=== PATIENT | male | born 1965 | race Caucasian/White ===

== ENCOUNTER 2019-10-05 11:40 | Emergency (ER) | payer OTHER ==
[2019-10-05] MEDS ORDERED: Sodium Chloride 0.9% 1000 ML 1,000 ML ONE (12:10)
[2019-10-05] MEDS: Sodium Chloride 0.9% 1000 ML 1,000 ML IV SCH (12:22)
--- NOTE | 2019-10-05 12:29 | XRAY ---
Indication: TIA symptoms and blurry vision. Hypertension. Multiple contiguous axial images obtained through the head without contrast. Comparison: None Normal appearing brain parenchyma, ventricles, and bony calvarium. Visualized paranasal sinuses and mastoid air cells are clear. Impression: Normal CT head without contrast exam.
--- NOTE | 2019-10-05 12:33 | ERPHSYRPT ---
- History of Present Illness Time Seen by Provider: 10/05/19 11:50 Source: patient Exam Limitations: no limitations Patient Subjective Stated Complaint: states bp was elevated at home this am. was 158/100. also had short episode of blurred vision this am while driving. states he feel ok now. denies any other symptoms. family member with patient states patient's father had a stroke at this age. Triage Nursing Assessment: ambulated to room per self. skin w/d, color flushed. resp nonlabored. denies any other symptoms at this time. gray without difficulty. a/o times four. speech clear. Physician History: Patient is a 54-year-old male presents to our ED with complaints of blurred vision hypertension. Patient was driving home and observed his vision to be blurred. Patient stated felt as though he had a rain drop on his glasses. Coincidentally it is raining today and patient wears glasses. However patient states that he was in his vehicle and his eyeglasses were dry at the time of the symptoms. Symptoms lasted for approximately 10 minutes. Symptoms then resolved. Symptoms are not associated with numbness tingling or weakness. No nausea vomiting or diaphoresis. No diarrhea. No rash. No headache. No neck pain. No trauma. Patient is 54 years old and states he has not seen a primary care doctor in many years. Patient does not know what his cholesterol is at this time. Patient voices no other complaints at this time. Patient currently asymptomatic. Timing/Duration: today Severity: mild Character of Deficits: none Baseline/Normal Cognition: alert oriented x 3 Current Cognition: alert oriented x 3 Baseline Gait: walks w/o assistance Associated Symptoms: vision changes, No fever, No chills, No loss of consciousness, No nausea, No vomiting, No weakness, No numbness/tingling in legs /feet, No paresthesia, No chest pain, No headache Allergies/Adverse Reactions: No Known Drug Allergies Allergy (Unverified 10/05/19 11:59) Home Medications: No Reportable Medications [No Reported Medications] 10/05/19 [History] Hx Tetanus, Diphtheria Vaccination/Date Given: No Hx Influenza Vaccination/Date Given: No Hx Pneumococcal Vaccination/Date Given: No - Review of Systems Constitutional: No Fever, No Chills Eyes: No Symptoms Ears, Nose, & Throat: No Symptoms Respiratory: No Symptoms, No Cough, No Dyspnea Cardiac: No Symptoms, No Chest Pain, No Edema, No Syncope Abdominal/Gastrointestinal: No Symptoms, No Abdominal Pain, No Nausea, No Vomiting, No Diarrhea Genitourinary Symptoms: No Symptoms, No Dysuria Musculoskeletal: No Symptoms, No Back Pain, No Neck Pain Skin: No Symptoms, No Rash Neurological: No Symptoms, No Dizziness, No Focal Weakness, No Sensory Changes Psychological: No Symptoms Endocrine: No Symptoms All Other Systems: Reviewed and Negative - Past Medical History Pertinent Past Medical History: No - Past Surgical History Past Surgical History: No - Social History Smoking Status: Never smoker Exposure to second hand smoke: No Drug Use: none Patient Lives Alone: No - Nursing Vital Signs Nursing Vital Signs: Initial Vital Signs Temperature 97.5 F 10/05/19 11:45 Pulse Rate 78 10/05/19 11:45 Respiratory Rate 16 10/05/19 11:45 Blood Pressure 144/91 10/05/19 11:45 O2 Sat by Pulse Oximetry 98 10/05/19 11:45 Pain Scale Pain Intensity 0 - Hillary Coma Scale Best Eye Response (Hillary): (4) open spontaneously Best Verbal Response (Kathleen): (5) oriented Best Motor Response (Hillary): (6) obeys commands Kathleen Total: 15 - Physical Exam General Appearance: no apparent distress, alert Eye Exam: bilateral eye: normal inspection, PERRL, EOMI Ears, Nose, Throat Exam: normal ENT inspection, moist mucous membranes Neck Exam: normal inspection, non-tender, supple Respiratory: normal breath sounds, lungs clear, airway intact, No respiratory distress Cardiovascular: regular rate/rhythm, No edema Gastrointestinal: soft, No tenderness, No distention Back Exam: normal inspection Extremity Exam: normal inspection, No pedal edema Mental Status: alert, 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: normal hearing, normal speech, PERRL, tongue midline, No abnormal eye position, No abnormal gag reflex, No abnormal pupil position, No abnormal speech , No facial asymmetry, No facial droop, No facial paresthesias, No facial weakness, No gaze palsy, No hearing deficit (R), No hearing deficit (L), No tongue deviation to R, No tongue deviation to L Coordination/Gait: normal finger to nose, normal gait Motor/Sensory: No no motor deficit, No no pronator drift, No negative Babinski' s sign, No positive Babinski's sign, No pronator drift (R), No pronator drift (L ), No sensory deficit, No weak motor strength LUE, No weak motor strength RLE, No weak motor strength LLE Skin Exam: normal color, warm, dry, No rash SpO2 Interpretation: normal SpO2: 96 O2 Delivery: Room Air - Course EKG Interpreted by Me: RATE, Sinus Rhythm, NORMAL AXIS, NORMAL INTERVALS - CT Exams Head CT Interpretation: Negative, Tele-radiologist Report (Normal CT head without contrast.) Ordered Tests: Active Orders 24 hr Category Date Time Status Spinner Cap Frame STAT Care 10/05/19 12:06 Active IV Insertion STAT Care 10/05/19 12:05 Active NPO (ED) STAT Care 10/05/19 12:06 Active Pulse Oximetry (ED) STAT Care 10/05/19 12:05 Active HEAD WITHOUT CONTRAST [CT] Stat Exams 10/05/19 12:06 Completed CBC W DIFF Stat Lab 10/05/19 12:20 Completed CMP Stat Lab 10/05/19 12:20 Completed TROPONIN Q3H Lab 10/05/19 13:00 Completed TROPONIN Q3H Lab 10/05/19 15:10 Completed TROPONIN Q3H Lab 10/05/19 19:00 Ordered TROPONIN Q3H Lab 10/05/19 22:00 Ordered TROPONIN Q3H Lab 10/06/19 01:00 Ordered UA W/RFX UR CULTURE Stat Lab 10/05/19 13:18 Completed Medication Summary Generic Name Dose Route Start Last Admin Trade Name Freq PRN Reason Stop Dose Admin Sodium Chloride 1,000 mls @ 100 mls/hr 10/05/19 12:15 10/05/19 12:22 Sodium Chloride 0.9% 1000 Ml IV 11/04/19 12:14 100 mls/hr .Q10H TL Administration Discontinued Medications Generic Name Dose Route Start Last Admin Trade Name Freq PRN Reason Stop Dose Admin Aspirin 324 mg 10/05/19 14:02 10/05/19 14:13 Baby Aspirin 81 Mg Chew PO 10/05/19 14:03 324 mg STAT ONE Administration Lab/Rad Data: Laboratory Result Diagrams 10/05/19 12:20 10/05/19 12:20 Laboratory Results 10/05/19 10/05/19 10/05/19 Range/Units 15:10 13:18 13:00 WBC (4.0-10.5) K/mm3 RBC (4.1-5.6) M/mm3 Hgb (12.5-18.0) gm/dl Hct (42-50) % MCV (78-100) fl MCH (26-32) pg MCHC (32-36) g/dl RDW (11.5-14.0) % Plt Count (150-450) K/mm3 MPV (7.5-11.0) fl Gran % (36.0-66.0) % Eos # (Auto) (0-0.5) Absolute Lymphs (auto) (1.0-4.6) Absolute Monos (auto) (0.0-1.3) Lymphocytes % (24.0-44.0) % Monocytes % (0.0-12.0) % Eosinophils % (0.00-5.0) % Basophils % (0.0-0.4) % Absolute Granulocytes (1.4-6.9) Basophils # (0-0.4) Sodium (137-145) mmol/L Potassium (3.5-5.1) mmol/L Chloride (98-107) mmol/L Carbon Dioxide (22-30) mmol/L Anion Gap (5-15) MEQ/L BUN (9-20) mg/dL Creatinine (0.66-1.25) mg/dL Estimated GFR ML/MIN Glucose (74-106) mg/dL Calcium (8.4-10.2) mg/dL Total Bilirubin (0.2-1.3) mg/dL AST (17-59) U/L ALT (0-50) U/L Alkaline Phosphatase (38-126) U/L Troponin I < 0.012 < 0.012 (0.000-0.034) ng/mL Serum Total Protein (6.3-8.2) g/dL Albumin (3.5-5.0) g/dL Urine Color YELLOW (YELLOW) Urine Appearance CLEAR (CLEAR) Urine pH 8.0 (5-6) Ur Specific Edgard 1.012 (1.005-1.025) Urine Protein NEGATIVE (Negative) Urine Ketones NEGATIVE (NEGATIVE) Urine Blood NEGATIVE (0-5) Murphy/ul Urine Nitrite NEGATIVE (NEGATIVE) Urine Bilirubin NEGATIVE (NEGATIVE) Urine Urobilinogen NEGATIVE (0-1) mg/dL Ur Leukocyte Esterase NEGATIVE (NEGATIVE) Urine WBC (Auto) NONE (0-5) /HPF Urine RBC (Auto) NONE (0-2) /HPF U Epithel Cells (Auto) NONE (FEW) /HPF Urine Bacteria (Auto) NONE (NEGATIVE) /HPF Urine Mucus (Auto) SLIGHT (NEGATIVE) /HPF Urine Culture Reflexed NO (NO) Urine Glucose NEGATIVE (NEGATIVE) mg/dL 10/05/19 10/05/19 Range/Units 12:20 12:20 WBC 6.6 (4.0-10.5) K/mm3 RBC 5.00 (4.1-5.6) M/mm3 Hgb 15.4 (12.5-18.0) gm/dl Hct 45.9 (42-50) % MCV 91.8 (78-100) fl MCH 30.8 (26-32) pg MCHC 33.6 (32-36) g/dl RDW 12.8 (11.5-14.0) % Plt Count 212 (150-450) K/mm3 MPV 10.4 (7.5-11.0) fl Gran % 62.2 (36.0-66.0) % Eos # (Auto) 0.08 (0-0.5) Absolute Lymphs (auto) 1.88 (1.0-4.6) Absolute Monos (auto) 0.53 (0.0-1.3) Lymphocytes % 28.3 (24.0-44.0) % Monocytes % 8.0 (0.0-12.0) % Eosinophils % 1.2 (0.00-5.0) % Basophils % 0.3 (0.0-0.4) % Absolute Granulocytes 4.13 (1.4-6.9) Basophils # 0.02 (0-0.4) Sodium 139 (137-145) mmol/L Potassium 4.3 (3.5-5.1) mmol/L Chloride 106 (98-107) mmol/L Carbon Dioxide 29 (22-30) mmol/L Anion Gap 8.8 (5-15) MEQ/L BUN 16 (9-20) mg/dL Creatinine 0.78 (0.66-1.25) mg/dL Estimated GFR > 60.0 ML/MIN Glucose 91 (74-106) mg/dL Calcium 9.1 (8.4-10.2) mg/dL Total Bilirubin 0.50 (0.2-1.3) mg/dL AST 33 (17-59) U/L ALT 33 (0-50) U/L Alkaline Phosphatase 50 (38-126) U/L Troponin I (0.000-0.034) ng/mL Serum Total Protein 6.8 (6.3-8.2) g/dL Albumin 4.1 (3.5-5.0) g/dL Urine Color (YELLOW) Urine Appearance (CLEAR) Urine pH (5-6) Ur Specific Edgard (1.005-1.025) Urine Protein (Negative) Urine Ketones (NEGATIVE) Urine Blood (0-5) Murphy/ul Urine Nitrite (NEGATIVE) Urine Bilirubin (NEGATIVE) Urine Urobilinogen (0-1) mg/dL Ur Leukocyte Esterase (NEGATIVE) Urine WBC (Auto) (0-5) /HPF Urine RBC (Auto) (0-2) /HPF U Epithel Cells (Auto) (FEW) /HPF Urine Bacteria (Auto) (NEGATIVE) /HPF Urine Mucus (Auto) (NEGATIVE) /HPF Urine Culture Reflexed (NO) Urine Glucose (NEGATIVE) mg/dL - Progress Progress Note: 10/05/19 15:[address] Hager who advised patient to come to our ED for an evaluation. After detailed discussion on patient's status and work-up Dr. Hager and I both felt that it was appropriate for discharge. In addition patient does not want to stay or be admitted in our hospital. A work-up for possible TIA will be conducted as an outpatient. Plan of care discussed with patient. Discussed with : Clara Will see patient in: office Counseled pt/family regarding: drug and/or alcohol abuse, lab results, diagnosis , need for follow-up, rad results, smoking cessation (Patient is a non-smoker.) - Departure Departure Disposition: Home Clinical Impression: Hypertension, Blurred vision, bilateral Condition: Good Critical Care Time: No Referrals: REAGAN HAGER MD [Primary Care Provider] - Additional Instructions: Discharge/Care Plan TAI WAITE was seen on 10/05/19 in the Emergency Room. The patient was counseled regarding Diagnosis,Lab results, Imaging studies, need for follow up and when to return to the Emergency Room. Prescriptions given: Discharge Note I have spoken with the patient and/or caregivers. I have explained the patient' s condition, diagnosis and treatment plan based on the information available to me at this time. I have answered the patient's and/or caregiver's questions and addressed any concerns. The patient and/or caregivers have as good understanding of the patient's diagnosis, condition and treatment plan as can be expected at this point. The vital signs have been stable. The patient's condition is stable and appropriate for discharge from the emergency department. The patient will pursue further outpatient evaluation with the primary care physician or other designated or consulting physician as outlined in the discharge instructions. The patient and/or caregivers are agreeable to this plan of care and follow-up instructions have been explained in detail. The patient and/or caregivers have received these instruction. The patient/and or caregivers are aware that any significant change in condition or worsening of symptoms should prompt an immediate return to this or the closest emergency department or call 911.
[2019-10-05 12:42] LABS: Absolute Neutrophil Ct (ANC) 4.13 (1.4-6.9); BASOPHIL % 0.3 % (0.0-0.4); Basophil (Absolute #) 0.02 (0-0.4); Eosinophil % 1.2 % (0.00-5.0); Eosinophil (Absolute #) 0.08 (0-0.5); Hematocrit 45.9 % (42-50); Hemoglobin 15.4 gm/dl (12.5-18.0); Lymphocyte (Absolute #) 1.88 (1.0-4.6); Lymphocytes % 28.3 % (24.0-44.0); Mean Cell Volume 91.8 fl (78-100); Mean Corpuscular Hemoglobin 30.8 pg (26-32); Mean Corpuscular Hgb Concent. 33.6 g/dl (32-36); Mean Platelet Volume 10.4 fl (7.5-11.0); Monocyte (Absolute #) 0.53 (0.0-1.3); Neutrophil % 62.2 % (36.0-66.0); Platelet Count 212 K/mm3 (150-450); Red Cell Distribution Width 12.8 % (11.5-14.0); White Blood Count 6.6 K/mm3 (4.0-10.5)
[2019-10-05 12:53] LABS: ALBUMIN 4.1 g/dL (3.5-5.0); ALKALINE PHOSPHATASE 50 U/L (38-126); ANION GAP 8.8 MEQ/L (5-15); BLOOD UREA NITROGEN 16 mg/dL (9-20); CHLORIDE 106 mmol/L (98-107); Calcium 9.1 mg/dL (8.4-10.2); Carbon Dioxide 29 mmol/L (22-30); Creatinine 1 0.78 mg/dL (0.66-1.25); Glucose 91 mg/dL (74-106); Potassium 4.3 mmol/L (3.5-5.1); SGOT/AST 33 U/L (17-59); SGPT/ALT 33 U/L (0-50); SODIUM 139 mmol/L (137-145); Total Protein 6.8 g/dL (6.3-8.2)
[2019-10-05 13:33] LABS: Appearance CLEAR (CLEAR); Bilirubin NEGATIVE (NEGATIVE); Blood NEGATIVE Ery/ul (0-5); Glucose NEGATIVE (NEGATIVE); Ketones NEGATIVE (NEGATIVE); Leukocyte Esterase NEGATIVE (NEGATIVE); Mucus SLIGHT /HPF (NEGATIVE); Nitrite NEGATIVE (NEGATIVE); Protein,Urine Dip NEGATIVE (Negative); Specific Gravity 1.012 (1.005-1.025); Urobilinogen NEGATIVE mg/dL (0-1)
[2019-10-05] MEDS: BABY ASPIRIN 81 MG CHEW PO ONE (14:13)
[2019-10-05 16:01] VITALS: BP 133/99; PULSE 88; O2SAT 98
== END 2019-10-05 15:59 | disposition home or self-care (01) ==
LOC: ED 11:40
DX: I10 Essential (primary) hypertension (principal); H53.8 Other visual disturbances
CPT/HCPCS: 36000; 36415; 70450; 80053; 81001; 84484; 85025; 93041; 94760; 96360; 96361; 99284; A9270-GY